=== PATIENT | female | born 1995 | race American Indian/Alaskan Native ===

== ENCOUNTER 2016-10-08 01:02 | Emergency (ER) | payer MEDICAID ==
[2016-10-08] MEDS ORDERED: NACL 0.9% 1000 ML 1,000 ML IV ONE (02:17)
[2016-10-08 03:30] LABS: Basophils % (Auto) 0.3 % (0.0-1.8); Hematocrit 38.2 % (30.3-42.9); Hemoglobin 12.6 gm/dl (10.1-14.3); Mean Corpuscular HGB Conc 33 % (30-34); Mean Corpuscular Hemoglobin 30 pg (28-32); Mean Corpuscular Volume 91 fl (79-97); Platelet Count 195 K/mm3 (140-440); Red Blood Count 4.22 M/mm3 (3.65-5.03); Red Cell Distribution Width 13.9 % (13.2-15.2); White Blood Count 9.4 K/mm3 (4.5-11.0)
[2016-10-08] MEDS ORDERED: ZOFRAN IV ONE (03:31)
--- NOTE | 2016-10-08 03:36 | Emergency Department Report ---
ED Alcohol HPI - General Chief Complaint: GI Bleed Stated Complaint: ETOH Time Seen by Provider: 10/08/16 03:09 Source: family, EMS Mode of arrival: Stretcher Limitations: No Limitations - History of Present Illness Initial Comments: Patient is a 21 years old female brought by EMS, mother at bedside, mother stated that they would drinking all cold last night and she thinks that her daughter get extra dose of alcohol. Patient is started vomiting immediately with mild amount blood in the vomitus. Mother stated that patient does not have any past medical history. Denied any other substance abuse. MD Complaint: alcohol intoxication Last Drink: just [employer] Chronic Alcohol Use: No Recent Trauma: No Associated Symptoms: nausea, vomiting Treatments Prior to Arrival: none - Related Data Previous Rx's Medication Instructions Recorded Last Taken Type Ondansetron [Zofran Odt] 4 mg PO Q8HR PRN #14 tab.rapdis 10/08/16 Unknown Rx Allergies Allergy/AdvReac Type Severity Reaction Status Date / Time No Known Allergies Allergy Unverified 10/08/16 02:12 ED Review of Systems ROS: Stated complaint: ETOH Other details as noted in HPI Comment: All other systems reviewed and negative Constitutional: denies: chills, fever Respiratory: denies: cough, shortness of breath Cardiovascular: denies: chest pain, palpitations Gastrointestinal: nausea, vomiting. denies: abdominal pain Psychiatric: denies: anxiety, depression, auditory hallucinations, visual hallucinations, homicidal thoughts, suicidal thoughts ED Past Medical Hx - Past Medical History Previous Medical History?: No - Surgical History Past Surgical History?: No - Social History Smoking Status: Never Smoker Substance Use Type: None - Medications Home Medications: Home Medications Medication Instructions Recorded Confirmed Last Taken Type Ondansetron [Zofran Odt] 4 mg PO Q8HR PRN #14 tab.rapdis 10/08/16 Unknown Rx ED Physical Exam - General Limitations: No Limitations General appearance: appears intoxicated - Head Head exam: Present: atraumatic, normocephalic - Eye Eye exam: Present: normal appearance, PERRL Pupils: Present: normal accommodation - ENT ENT exam: Present: normal exam - Neck Neck exam: Present: normal inspection - Respiratory Respiratory exam: Present: normal lung sounds bilaterally - Cardiovascular Cardiovascular Exam: Present: regular rate, normal rhythm, normal heart sounds - GI/Abdominal GI/Abdominal exam: Present: soft. Absent: distended, tenderness, guarding, rebound, rigid, normal bowel sounds, mass, bruit, pulsatile mass, hernia - Extremities Exam Extremities exam: Present: normal inspection - Back Exam Back exam: Present: normal inspection - Neurological Exam Neurological exam: Present: alert, oriented X3, CN II-XII intact - Psychiatric Psychiatric exam: Present: normal affect. Absent: depressed, agitated, homicidal ideation, suicidal ideation - Skin Skin exam: Present: warm, normal color ED Course Vital Signs 10/08/16 10/08/16 02:12 04:37 Temperature 98.8 F 98.0 F Pulse Rate 93 H 92 H Respiratory 18 14 Rate Blood Pressure 108/71 Blood Pressure 104/62 [Left] O2 Sat by Pulse 99 100 Oximetry - Reevaluation(s) Reevaluation #1: 10/08/16 05:17 Patient is alert oriented but is still intoxicated. We'll observed in the ER and get another alcohol level around 10:00 am ED Medical Decision Making - Lab Data Result diagrams: 10/08/16 02:48 10/08/16 02:48 Critical care attestation.: If time is entered above; I have spent that time in minutes in the direct care of this critically ill patient, excluding procedure time. ED Disposition Clinical Impression: Alcohol intoxication, Vomiting Disposition: DC-01 TO HOME OR SELFCARE Is pt being admited?: No Does the pt Need Aspirin: No Condition: Stable Instructions: Abuse of Alcohol (ED) Referrals: PRIMARY CARE, [Primary Care Provider] - 3-5 Days Forms: Accompanied Note
[2016-10-08 03:42] LABS: INR 1.01 (0.87-1.13)
[2016-10-08 03:43] LABS: Partial Thromboplastin Time 28.7 Sec. (24.2-36.6)
[2016-10-08 03:51] LABS: Alanine Aminotransferase 9 units/L (7-56); Albumin/Globulin Ratio 1.4 %; Alkaline Phosphatase 62 units/L (35-129); Anion Gap 18 mmol/L; Blood Urea Nitrogen 4 mg/dL (7-17); Calcium 7.9 mg/dL (8.4-10.2); Carbon Dioxide 21 mmol/L (22-30); Chloride 106.8 mmol/L (98-107); Glucose 104 mg/dL (65-100); Lipase 43 units/L (13-60); Potassium 4.3 mmol/L (3.6-5.0); Sodium 141 mmol/L (137-145); Total Protein 6.9 g/dL (6.3-8.2)
[2016-10-08 04:00] LABS: Urine Drugs of Abuse Note Disclamer
[2016-10-08 10:09] VITALS: BP 100/60
== END 2016-10-08 11:02 | disposition home or self-care (01) ==
LOC: ED 01:02
DX: F10.120 Alcohol abuse with intoxication, uncomplicated (principal)
CPT/HCPCS: 36415; 80053; 80307; 83690; 84703; 85025; 85610; 85730; 86850; 86900; 86901; 96361; 96374; 99284; G0480; J7030; 80320